=== PATIENT | female | born 1995 | race Caucasian/White ===

== ENCOUNTER → 2018-09-05 | Day surgery (SDC) | payer BC ==
[~2018-09-05] VITALS: Ht 167.6 cm; Wt 99.8 kg
[~2018-09-05] MED LIST: ASACOL HD800 M1 PO; FLORASTOR250 MG PO; NATURE'S BLEND F1 MG PO; ONDANSETRON HYDR4 M1 PO; PRENATA CHEWAB1 EACH PO; PROBIOTIC 15 B1 EACH PO; SULFASALAZINE500 MG PO; VITAMIN B121000 MC1 PO
--- NOTE | ~2018-09-05 | O ---
[place], [place] OPERATIVE NOTE NAME: VINH FREY UNIT #: [id number] ROOM: DOCTOR: DONAVAN VALE,MALINI BIRTHDATE: [birth year] DOS: 09/05/2018 GASTROENDOSCOPIC INDICATIONS: The patient was presented with history of persistent diarrhea about 10-20 bowel movements a day. The patient has been on Humira therapy on sulfasalazine and folic acid, azathioprine and none of which has been helping. The patient has mucus and blood in the stool. PROCEDURE: Today's procedure part of investigation is colonoscopy and terminal ileoscopy. PREMEDICATION: Propofol. SCOPE: Olympus folding colonoscope 10L video. REPORT: After putting the patient in left lateral position and application of lubricant to rectal pouch and digital examination, scope was introduced. Thereafter, under direct visualization, advanced through the length of colon without difficulty. Pancolitis with salt and pepper pattern throughout the entire colon from rectal pouch all the way to appendix, anatomy was identified. Terminal ileum was scoped. There is no evidence of gross ulceration or Crohn's pathology or terminal ileitis. Scope was withdrawn back. Biopsies from ascending and transverse colon randomly was obtained for documentation. Photographic series obtained. Air was suctioned out. The patient gradually extubated and tolerated the procedure well. IMPRESSION: Pancolitis, etiology uncertain due to the fact that she has been on multimodality therapy. Therefore, it is difficult to say what stage and status this moderate colitis with pancolitis expression has. PLAN ON DISCUSSION: May be, I will remove her sulfasalazine. We are going to start mesalamine therapy on her and that would be Asacol 800 mg HD 2 tablets 3 times a day and we are going to have biopsy results of the colon to decide about another biologic therapy. Meanwhile, the patient is going to be advised to abstain carbonated sodas excessive dairy products. Meanwhile another stool for C. diff and ova and parasite is going to be reorganized in 2 days for her and at such a time probiotic therapy with Florastor 250 mg b.i.d. is going to be considered and clinical workup continues as outpatient. [place], [place] OPERATIVE NOTE NAME: VINH FREY UNIT #: [id number] ROOM: DOCTOR: DONAVAN VALE,MALINI BIRTHDATE: [birth year] MALINI GO MD CM:OPRECORD:OPERATIVE NOTE [id number] MALINI GO MD 09/05/18 1140 interface
[2018-09-05 09:00] VITALS: BP 122/68
[2018-09-05 10:30] VITALS: BP 101/53
[2018-09-05 10:45] VITALS: BP 101/62
[2018-09-05 11:00] VITALS: BP 112/45
== END | disposition home or self-care (01) ==
LOC: SDC 08-30 09:30
DX: K52.89 Other specified noninfective gastroenteritis and colitis (principal); F41.9 Anxiety disorder, unspecified; F32.9 Major depressive disorder, single episode, unspecified; E66.9 Obesity, unspecified; G43.909 Migraine, unspecified, not intractable, without status migrainosus; Z68.35 Body mass index [BMI] 35.0-35.9, adult; Z87.891 Personal history of nicotine dependence; Z91.040 Latex allergy status; Z91.018 Allergy to other foods; Z88.8 Allergy status to other drugs, medicaments and biological substances; Z72.89 Other problems related to lifestyle; Z98.890 Other specified postprocedural states; Z79.899 Other long term (current) drug therapy

== ENCOUNTER → 2020-07-02 | Outpatient (CLI) | payer BC | END | disposition home or self-care (01) | LOC: COVID19 13:35 | PROVIDERS: ATTEND Internal Medicine | DX: Z20.828 Contact with and (suspected) exposure to other viral communicable diseases (principal) ==

== ENCOUNTER → 2020-09-23 | Outpatient (CLI) | payer OTHER ==
[2020-09-23 15:46] LABS: BASO # 0.1 10*3/uL (0.0-0.1); BASO % 0.5 % (0.0-1.0); EOS # 0.1 10*3/uL (0.0-0.4); EOS % 1.1 % (1.0-4.0); HEMATOCRIT 42.6 % (37.0-47.0); LYMPH # 3.3 10*3/uL (1.3-4.4); LYMPH % 32.8 % (27.0-41.0); MEAN CELL VOLUME 89.3 fl (81.0-99.0); MEAN CORPUSCULAR HGB CONC 33.6 g/dl (33.0-37.0); MEAN PLATELET VOLUME 9.5 fl (9.6-12.3); MONO # 0.7 10*3/uL (0.1-1.0); MONO % 6.6 % (3.0-9.0); NEUT # 5.8 10*3/uL (2.3-7.9); NEUT % 58.6 % (47.0-73.0); PLATELET COUNT AUTOMATED 356 10*3/uL (130-400); RED BLOOD COUNT 4.77 10*6/uL (4.10-5.10); RED CELL DISTRI WIDTH 11.9 % (0-14.5); WHITE BLOOD COUNT 9.9 10*3/uL (4.8-10.8)
[2020-09-23 16:00] LABS: ALBUMIN 4.1 gm/dl (3.1-4.5); ALKALINE PHOSPHATASE 64 U/L (45-117); BUN 13 mg/dl (7-24); CHLORIDE 104 mmol/L (98-107); CHOLESTEROL 206 mg/dL (<200); CREATININE 0.92 mg/dL (0.55-1.02); HDL CHOLESTEROL 57 mg/dl (40-60); LDL CHOLESTEROL 109 mg/dL (9-159); POTASSIUM 3.7 mmol/L (3.5-5.1); SGOT/AST 17 IU/L (3-35); SGPT/ALT 36 U/L (12-78); SODIUM 139 mmol/L (136-145); TOTAL PROTEIN 8.3 gm/dL (6.4-8.2); TRIGLYCERIDES 198 mg/dl (<150); VLDL CHOLESTEROL 40 mg/dL (6-40)
== END | disposition home or self-care (01) ==
LOC: LAB 14:50
PROVIDERS: ATTEND Registered Nurse Psychiatric/Mental Health
DX: F43.10 Post-traumatic stress disorder, unspecified (principal)

== ENCOUNTER 2022-11-30 11:45 | Emergency (ER) | payer OTHER ==
[~2022-11-30] VITALS: Ht 167.6 cm
[2022-11-30] MEDS ORDERED: VIBRAMYCIN100 MG PO ×2 (19:22→19:28)
[2022-11-30] MEDS ORDERED: IBUPROFEN600 MG PO (19:22)
== END 2022-11-30 19:39 | disposition home or self-care (01) ==
LOC: ED 11:45
DX: L02.414 Cutaneous abscess of left upper limb (principal); R11.0 Nausea; R20.0 Anesthesia of skin; F32.A Depression, unspecified; F41.9 Anxiety disorder, unspecified; Z91.018 Allergy to other foods; Z91.040 Latex allergy status; Z98.890 Other specified postprocedural states

== ENCOUNTER → 2023-11-02 | Outpatient (CLI) | payer BC ==
[~2023-11-02] MED LIST changes: +IBUPROFEN600 MG PO; +VIBRAMYCIN100 MG PO
[2023-11-02 10:12] LABS: EOS % 0.5 % (1.0-4.0); HEMATOCRIT 42.3 % (37.0-47.0); LYMPH # 0.6 10*3/uL (1.3-4.4); LYMPH % 14.4 % (27.0-41.0); MEAN CELL VOLUME 88.7 fl (81.0-99.0); MEAN CORPUSCULAR HGB 29.6 pg (27.0-31.0); MEAN CORPUSCULAR HGB CONC 33.3 g/dl (33.0-37.0); MEAN PLATELET VOLUME 8.9 fl (9.6-12.3); MONO # 0.5 10*3/uL (0.1-1.0); MONO % 11.6 % (3.0-9.0); NEUT # 3.1 10*3/uL (2.3-7.9); NEUT % 72.8 % (47.0-73.0); PLATELET COUNT AUTOMATED 363 10*3/uL (130-400); RED BLOOD COUNT 4.77 10*6/uL (4.10-5.10); RED CELL DISTRI WIDTH 12.1 % (0-14.5); WHITE BLOOD COUNT 4.2 10*3/uL (4.8-10.8)
[2023-11-02 10:36] LABS: ALKALINE PHOSPHATASE 63 U/L (46-116); BUN 9 mg/dl (9-23); CHLORIDE 104 mmol/L (98-107); FREE T4 1.01 ng/dl (0.89-1.76); POTASSIUM 3.7 mmol/L (3.4-5.1); SGPT/ALT 35 U/L (5-49); TOTAL PROTEIN 7.5 gm/dL (6.0-8.0)
== END | disposition home or self-care (01) ==
LOC: LAB 09:42
PROVIDERS: ATTEND Nurse Practitioner Family
DX: L50.1 Idiopathic urticaria (principal); L81.4 Other melanin hyperpigmentation; L29.8 Other pruritus